=== PATIENT | female | born 1955 | race Caucasian/White ===

== ENCOUNTER 2020-08-16 14:13 | Emergency (ER) | payer MEDICARE, SELFPAY ==
[2020-08-16 14:23] VITALS: BP 154/62; PULSE 66; RESP 16; TEMP 36.4; O2SAT 99
--- NOTE | 2020-08-16 14:31 | ED.FEMALEGU ---
HPI - Female Genitourinary General Chief complaint: Urogenital-Female Stated complaint: frequent urination/vaginal itching Source: patient and RN notes reviewed Mode of arrival: ambulatory Limitations: no limitations History of Present Illness HPI Narrative: 65 year old female presents to express care with complaints of urgency,frequency, occasional incontinency of urination, and back pain for approximately one week duration. She states that she also has noted some whitish discharge on her underwear and some vaginal itching. Patient states that she was recently treated for an asthma exacerbation with steroids, and antibiotics on the 04 of August.Patient denies any suprapubic tenderness, no fevers chills or sweats, no nausea or vomiting. MD elicited complaint: vaginal discharge (itching) and other (urinary frequency) Onset (ago): week(s) (1) Location of symptoms: vaginal Urinary symptoms: Urgency and Frequency Exacerbating factors: none Relieving factors: none Associated symptoms: back pain and other (vaginal itching) Sexual activity: No Possible : postmenopausal Related Data Home Medications Medication Instructions Recorded Confirmed apixaban [Eliquis] 5 mg PO BID 08/16/20 08/16/20 calcium carbonate [Antacid 500 mg PO DAILY 08/16/20 08/16/20 (calcium carbonate)] cetirizine 10 mg PO DAILY 08/16/20 08/16/20 digoxin 125 mcg PO DAILY 08/16/20 08/16/20 fluticasone propionate 2 spray INTRANASAL DAILY 08/16/20 08/16/20 ipratropium-albuterol [Combivent 1 puff INHALATION QID 08/16/20 08/16/20 Respimat] levothyroxine 100 mcg PO DAILY 08/16/20 08/16/20 lorazepam 08/16/20 lorazepam 1 mg PO Q8H PRN 08/16/20 08/16/20 meloxicam 15 mg PO DAILY 08/16/20 08/16/20 metformin 500 mg PO BID 08/16/20 08/16/20 metoprolol tartrate 25 mg PO BID 08/16/20 08/16/20 oxycodone-acetaminophen 1 tablet PO Q6H PRN 08/16/20 08/16/20 pravastatin 10 mg PO DAILY 08/16/20 08/16/20 ropinirole 2 mg PO HS 08/16/20 08/16/20 ropinirole 3 mg PO BID 08/16/20 08/16/20 sertraline 100 mg PO DAILY 08/16/20 08/16/20 tizanidine 2 mg PO Q6H PRN 08/16/20 08/16/20 Allergies Allergy/AdvReac Type Severity Reaction Status Date / Time quinine Allergy Unknown Palpitation Verified 08/16/20 14:35 s Review of Systems Review of Systems: Narrative: CONSTITUTIONAL: Denies fever, chills, or sweats. EYES: Denies visual changes, redness, or discharge. ENT: Denies rhinorrhea, congestion, sore throat, or otalgia. CARDIOVASCULAR: Denies chest pain, palpitations, or edema. RESPIRATORY: Denies cough or dyspnea. GASTROINTESTINAL: Denies abdominal pain, nausea, vomiting, or diarrhea. GENITOURINARY: Denies dysuria or hematuria, urinary frequency, urgency, vaginal discharge with itching SKIN: Denies rash or itching. MUSCULOSKELETAL:positive low back pain, joint pain, or myalgia, positive history of arthritis NEUROLOGIC: Denies headache, numbness, or weakness. PSYCHIATRIC: positive for history of anxiety or depression. All systems reviewed & are unremarkable except as noted in HPI and below PMFSH Past Medical History Medical History (Updated 08/18/20 @ 11:52 by Sheila Cornejo NP) A-fib Anxiety and depression Asthma Diabetes Hyperlipidemia Hypertension Migraines Osteoarthritis Restless leg syndrome Surgical History Surgical History (Updated 08/17/20 @ 10:16 by Sheila Cornejo NP) H/O shoulder surgery History of total left knee replacement Social History Social History (Updated 08/17/20 @ 10:13 by Sheila Cornejo NP) Smoking status: Never smoker Alcohol intake: never Substance use type: opiates Last use: arthritis pain Living arrangements: with family Gender identity (if verbalized by the patient): Female Comments At time of signature, agree with nursing past medical, surgical, social history. There is no relevant family history pertinent to the presenting complaint Exam Narrative: Exam Narrative: GENERAL: Well-appearing, wel
== END 2020-08-16 15:07 | disposition home or self-care (01) ==
PROVIDERS: Emergency Provider Registered Nurse; PCP Family Medicine
DX: B37.3 Candidiasis of vulva and vagina (principal); R35.0 Frequency of micturition; Z96.652 Presence of left artificial knee joint; I48.91 Unspecified atrial fibrillation; F41.9 Anxiety disorder, unspecified; F32.9 Major depressive disorder, single episode, unspecified; J45.909 Unspecified asthma, uncomplicated; E11.9 Type 2 diabetes mellitus without complications; E78.5 Hyperlipidemia, unspecified; I10 Essential (primary) hypertension; M19.90 Unspecified osteoarthritis, unspecified site; G25.81 Restless legs syndrome
CPT/HCPCS: 81003; 99213; G0463

== ENCOUNTER 2020-09-04 10:10 | Emergency (ER) | payer MEDICARE, SELFPAY ==
--- NOTE | ~2020-09-04 | XR_ITS ---
EXAMINATION: XR chest 2V DATE: 09/04/2020 10:40 INDICATION: Cough, expiratory wheezes and decreased breath sounds TECHNIQUE: frontal and lateral views of the chest were obtained. COMPARISON: None FINDINGS: The lungs are clear with no focal airspace opacities, pulmonary edema, pleural effusion or pneumothor ax. Borderline heart size with left paracardial fat pad. Mild thoracic kyphosis with moderate spondyl osis. Chronic appearing mild anterior wedging of a few lower thoracic vertebral bodies. IMPRESSION: 1. Borderline heart size. No acute cardiopulmonary disease. Reviewed, dictated and finalized at location A.
[2020-09-04 10:15] VITALS: BP 171/63; PULSE 60; RESP 16; TEMP 37.3; O2SAT 100
--- NOTE | 2020-09-04 10:29 | ED.GENADULT ---
HPI - General Adult General Chief complaint: Upper Respiratory Infection Stated complaint: cough runny nose Time Seen by Provider: 09/04/20 10:29 Source: patient and RN notes reviewed Mode of arrival: ambulatory Limitations: no limitations History of Present Illness HPI narrative: 65-year-old female presents with complains of dry cough and chest congestion, wheezing, and rhinorrhea for the past 7 days. Routine Zyrtec, Albuterol inhaler, and nebulizer with some relief. Nasal congestion. No high fevers, drooling, neck or throat swelling. No chest pain or shortness of breath. Denies nausea, vomiting, and abdominal pain. Tolerating liquids well. Remains active. The patient reports she have not been diagnosed with COVID-19. The patient reports she is not waiting for the results of a COVID-19 lab test. The patient reports she do not have weakness or fatigue. The patient reports she do not have a worsening cough or shortness of breath. The patient reports she do not have any sore throat, loss of taste, and diarrhea. Denies recent traveling. Denies concerns for COVID-19 or exposures been home with limited outdoor exposure except for essential household needs and return home. At this time, patient is not suspected of having COVID-19. Some parts of this dictation were generated by voice recognition software and may contain typographical and/or grammatical inaccuracies. Related Data Home Medications Medication Instructions Recorded Confirmed apixaban [Eliquis] 5 mg PO BID 08/16/20 09/04/20 calcium carbonate [Antacid 500 mg PO DAILY 08/16/20 09/04/20 (calcium carbonate)] cetirizine 10 mg PO DAILY 08/16/20 09/04/20 digoxin 125 mcg PO DAILY 08/16/20 09/04/20 fluticasone propionate 2 spray INTRANASAL DAILY 08/16/20 09/04/20 ipratropium-albuterol [Combivent 1 puff INHALATION QID 08/16/20 09/04/20 Respimat] levothyroxine 100 mcg PO DAILY 08/16/20 09/04/20 lorazepam 1 mg PO Q8H PRN 08/16/20 09/04/20 meloxicam 15 mg PO DAILY 08/16/20 09/04/20 metformin 500 mg PO BID 08/16/20 09/04/20 metoprolol tartrate 25 mg PO BID 08/16/20 09/04/20 oxycodone-acetaminophen 1 tablet PO Q6H PRN 08/16/20 09/04/20 pravastatin 10 mg PO DAILY 08/16/20 09/04/20 ropinirole 2 mg PO HS 08/16/20 08/16/20 ropinirole 3 mg PO BID 08/16/20 09/04/20 sertraline 100 mg PO DAILY 08/16/20 08/16/20 tizanidine 2 mg PO Q6H PRN 08/16/20 08/16/20 Allergies Allergy/AdvReac Type Severity Reaction Status Date / Time quinine Allergy Unknown Palpitation Verified 08/16/20 14:35 s Review of Systems Review of Systems: Narrative: CONSTITUTIONAL: Denies fever, sweats, chills, fatigue. EYES: Denies visual changes, redness, discharge. ENT: Complains of rhinorrhea, congestion. Denies sore throat, otalgia. CARDIOVASCULAR: Denies chest pain, palpitations, edema. RESPIRATORY: Denies dyspnea, wheezing. Complains of dry cough, chest congestion. GASTROINTESTINAL: Denies abdominal pain, nausea, vomiting, diarrhea. GENITOURINARY: Denies dysuria, hematuria, abnormal discharge. SKIN: Denies rash or itching. MUSCULOSKELETAL: Denies acute back pain, joint pain, or myalgia. NEUROLOGIC: Denies numbness or focal weakness. PSYCHIATRIC: Denies anxiety or depression. [facility] Past Medical History Medical History (Updated 09/04/20 @ 10:48 by DOROTA Hansen) A-fib Anxiety and depression Asthma Diabetes Hyperlipidemia Hypertension Migraines Osteoarthritis Restless leg syndrome Surgical History Surgical History (Updated 09/04/20 @ 10:41 by DOROTA Hansen) H/O shoulder surgery bilateral History of hysterectomy 1984 History of total left knee replacement Family History Family History (Updated 09/04/20 @ 10:42 by DOROTA Hansen) Father Lung cancer Mother Hypertension Heart disease Asthma Social History Social History (Updated 09/04/20 @ 10:43 by DOROTA Hansen) Smoking status: Never smoker Tobacco type: cig
[2020-09-04 10:46] VITALS: BP 171/63; PULSE 60; RESP 16; TEMP 37.3; O2SAT 100
== END 2020-09-04 10:52 | disposition home or self-care (01) ==
PROVIDERS: Emergency Provider Nurse Practitioner Family; PCP Family Medicine
DX: J45.901 Unspecified asthma with (acute) exacerbation (principal); I48.91 Unspecified atrial fibrillation; F41.9 Anxiety disorder, unspecified; F32.9 Major depressive disorder, single episode, unspecified; E11.9 Type 2 diabetes mellitus without complications; E78.5 Hyperlipidemia, unspecified; I10 Essential (primary) hypertension; M19.90 Unspecified osteoarthritis, unspecified site; G25.81 Restless legs syndrome
CPT/HCPCS: 71046; 99213; G0463

== ENCOUNTER 2020-11-16 10:43 | Emergency (ER) | payer MEDICARE, SELFPAY ==
[2020-11-16 10:52] VITALS: BP 162/88; PULSE 62; RESP 16; TEMP 36.2; O2SAT 97
--- NOTE | 2020-11-16 11:04 | ED.URI ---
HPI - URI/Sore Throat General Chief Complaint: Upper Respiratory Infection Stated Complaint: coughing asthma issues Time Seen by Provider: 11/16/20 11:20 Source: patient and RN notes reviewed Mode of arrival: ambulatory Limitations: no limitations History of Present Illness HPI Narrative: 65-year-old female with history of asthma presents with concern for wheezing, cough, rhinorrhea, shortness of breath, reports symptoms started approximately 12 days ago. Reports she had a negative Covid test 2 weeks ago. Denies fever, body aches, chills, sweats, loss of sense of taste or smell, poor appetite, nausea, vomiting, diarrhea. Reports she is taking [id number]-[id number] sinus medicine that relieve sinus congestion. MD elicited complaint: cough Related Data Home Medications Medication Instructions Recorded Confirmed apixaban [Eliquis] 5 mg PO BID 08/16/20 11/16/20 calcium carbonate [Antacid 500 mg PO DAILY 08/16/20 11/16/20 (calcium carbonate)] cetirizine 10 mg PO DAILY 08/16/20 11/16/20 digoxin 125 mcg PO DAILY 08/16/20 11/16/20 fluticasone propionate 2 spray INTRANASAL DAILY 08/16/20 11/16/20 ipratropium-albuterol [Combivent 1 puff INHALATION QID 08/16/20 11/16/20 Respimat] levothyroxine 100 mcg PO DAILY 08/16/20 11/16/20 lorazepam 1 mg PO Q8H PRN 08/16/20 11/16/20 meloxicam 15 mg PO DAILY 08/16/20 11/16/20 metformin 500 mg PO BID 08/16/20 11/16/20 metoprolol tartrate 25 mg PO BID 08/16/20 11/16/20 oxycodone-acetaminophen 1 tablet PO Q6H PRN 08/16/20 11/16/20 pravastatin 10 mg PO DAILY 08/16/20 11/16/20 ropinirole 2 mg PO HS 08/16/20 11/16/20 ropinirole 3 mg PO BID 08/16/20 11/16/20 sertraline 100 mg PO DAILY 08/16/20 11/16/20 tizanidine 2 mg PO Q6H PRN 08/16/20 11/16/20 Allergies Allergy/AdvReac Type Severity Reaction Status Date / Time quinine Allergy Unknown Palpitation Verified 11/16/20 11:10 s Review of Systems Review of Systems: Narrative: CONSTITUTIONAL: Denies malaise, chills, sweats, or fever. EYES: Denies visual changes, redness, or discharge. ENT: Reports rhinorrhea, congestion. Denies sinus pain, otalgia and sore throat. CARDIOVASCULAR: Denies chest pain, palpitations, or edema. RESPIRATORY: Reports cough, occasional dyspnea. GASTROINTESTINAL: Denies abdominal pain, nausea, vomiting, diarrhea SKIN: Denies rash or itching. MUSCULOSKELETAL: Denies myalgia. NEUROLOGIC: Denies headache. All systems reviewed & are unremarkable except as noted in HPI and below PMFSH Past Medical History Medical History (Updated 11/16/20 @ 11:38 by Linnette Gaines NP) A-fib Anxiety and depression Asthma Diabetes Hyperlipidemia Hypertension Migraines Osteoarthritis Restless leg syndrome Surgical History Surgical History (Updated 09/04/20 @ 10:41 by DOROTA Hansen) H/O shoulder surgery bilateral History of hysterectomy 1984 History of total left knee replacement Family History Family History (Updated 09/04/20 @ 10:42 by DOROTA Hansen) Father Lung cancer Mother Hypertension Heart disease Asthma Social History Social History (Updated 09/04/20 @ 10:43 by DOROTA Hansen) Smoking status: Never smoker Tobacco type: cigarettes Second hand tobacco smoke exposure: No Alcohol intake: never Substance use type: opiates Last use: arthritis pain Gender identity (if verbalized by the patient): Female Comments At time of signature, agree with nursing past medical, surgical, social and family history. There is no relevant family history pertinent to the presenting complaint Exam Narrative: Exam Narrative: GENERAL: Well-appearing, well-nourished, and in no acute distress. HEAD: Normocephalic EYES: PERRLA, conjunctivae clear ENT: Nares clear, turbinates erythematous, clear discharge. Mucous membranes moist. TM pearly nichols with sharp light reflex bilaterally; no tragal tenderness. Oropharynx not erythematous without lesions. Tonsils not enlarged and without e
== END 2020-11-16 11:42 | disposition home or self-care (01) ==
PROVIDERS: Emergency Provider Nurse Practitioner; PCP Family Medicine
DX: J45.41 Moderate persistent asthma with (acute) exacerbation (principal); I48.91 Unspecified atrial fibrillation; F41.9 Anxiety disorder, unspecified; F32.9 Major depressive disorder, single episode, unspecified; E11.9 Type 2 diabetes mellitus without complications; E78.5 Hyperlipidemia, unspecified; I10 Essential (primary) hypertension; M19.90 Unspecified osteoarthritis, unspecified site; G25.81 Restless legs syndrome; Z96.652 Presence of left artificial knee joint
CPT/HCPCS: 99213; G0463

== ENCOUNTER 2021-02-05 13:31 | Emergency (ER) | payer MEDICARE, SELFPAY ==
[2021-02-05 13:59] VITALS: BP 149/61; PULSE 90; RESP 20; TEMP 37.1; O2SAT 98
--- NOTE | 2021-02-05 14:26 | ED.GENADULT ---
HPI - General Adult General Chief complaint: Urogenital-Female Stated complaint: Poss bladder infection Time Seen by Provider: 02/05/21 14:26 Source: patient and RN notes reviewed Mode of arrival: ambulatory Limitations: no limitations History of Present Illness HPI narrative: 65-year-old female presents with urinary complaints for the past 7 days. Allie reports increasing dysuria, which consists of dark urine, incontinent episodes, frequency, and urgency. Cranberry juice without relief.? Denies fever or chills. No significant pelvic pain. No vaginal discharge.? No concerns for STDs. Exacerbating factors urinating.? Denies hematuria or vaginal bleeding. LMP postmenopausal. No flank pain. Denies nausea, vomiting, and abdominal pain. Tolerating liquids well.? Remains active. The patient reports she was diagnosed with COVID-19 in July 2020, no current symptoms. The patient reports she received the [employer] COVID-19 vaccine 2 weeks ago. The patient reports she is not waiting for the results of a COVID-19 lab test. The patient reports she do not have chills, weakness, or fatigue. The patient reports she do not have a new or worsening cough or shortness of breath. Denies chest pain. The patient reports she do not have any rhinorrhea, congestion, sore throat, loss of taste or smell, and diarrhea. Denies recent traveling. Denies concerns for COVID-19 or exposures been home with limited outdoor exposure except for essential household needs and return home. At this time, patient is not suspected of having COVID-19. Some parts of this dictation were generated by voice recognition software and may contain typographical and/or grammatical inaccuracies. Related Data Home Medications Medication Instructions Recorded Confirmed apixaban [Eliquis] 5 mg PO BID 08/16/20 02/05/21 calcium carbonate [Antacid 500 mg PO DAILY 08/16/20 02/05/21 (calcium carbonate)] cetirizine 10 mg PO DAILY 08/16/20 02/05/21 digoxin 125 mcg PO DAILY 08/16/20 02/05/21 fluticasone propionate 2 spray INTRANASAL DAILY 08/16/20 02/05/21 ipratropium-albuterol [Combivent 1 puff INHALATION QID 08/16/20 02/05/21 Respimat] levothyroxine 100 mcg PO DAILY 08/16/20 02/05/21 lorazepam 1 mg PO Q8H PRN 08/16/20 02/05/21 meloxicam 15 mg PO DAILY 08/16/20 02/05/21 metformin 500 mg PO BID 08/16/20 02/05/21 metoprolol tartrate 25 mg PO BID 08/16/20 02/05/21 oxycodone-acetaminophen 1 tablet PO Q6H PRN 08/16/20 02/05/21 pravastatin 10 mg PO DAILY 08/16/20 02/05/21 ropinirole 2 mg PO HS 08/16/20 02/05/21 ropinirole 3 mg PO BID 08/16/20 02/05/21 sertraline 100 mg PO DAILY 08/16/20 02/05/21 tizanidine 2 mg PO Q6H PRN 08/16/20 02/05/21 budesonide-formoterol [Symbicort] 2 puff INHALATION BID 02/05/21 02/05/21 Allergies Allergy/AdvReac Type Severity Reaction Status Date / Time quinine Allergy Unknown Palpitation Verified 02/05/21 14:10 s Review of Systems Review of Systems: Narrative: CONSTITUTIONAL: Denies fever, chills, sweats. EYES: Denies visual changes, redness, discharge. ENT: Denies rhinorrhea, congestion, sore throat, otalgia. CARDIOVASCULAR: Denies chest pain, palpitations, edema. RESPIRATORY: Denies dyspnea, wheezing, cough. GASTROINTESTINAL: Denies abdominal pain, nausea, vomiting, diarrhea. GENITOURINARY: Complains of dysuria (dark urine, incontinent episodes, frequency, and urgency). Denies burning, hematuria, abnormal discharge. SKIN: Denies rash or itching. MUSCULOSKELETAL: Denies acute back pain, joint pain, or myalgia. NEUROLOGIC: Denies numbness or focal weakness. PSYCHIATRIC: Denies anxiety or depression. All systems reviewed & are unremarkable except as noted in HPI and below. [facility] Past Medical History Medical History A-fib Anxiety and depression Asthma Diabetes Hyperlipidemia Hypertension Migraines Osteoarthritis Restless leg syndrome Surgical History Surgical
== END 2021-02-05 14:30 | disposition home or self-care (01) ==
PROVIDERS: Emergency Provider Nurse Practitioner Family; PCP Family Medicine
DX: R30.0 Dysuria (principal); I48.91 Unspecified atrial fibrillation; F41.9 Anxiety disorder, unspecified; F32.9 Major depressive disorder, single episode, unspecified; J45.909 Unspecified asthma, uncomplicated; E11.9 Type 2 diabetes mellitus without complications; E78.5 Hyperlipidemia, unspecified; I10 Essential (primary) hypertension; M19.90 Unspecified osteoarthritis, unspecified site; G25.81 Restless legs syndrome
CPT/HCPCS: 81003; 87086; 87088; 99213; G0463

== ENCOUNTER 2022-05-18 10:57 | Emergency (ER) | payer MEDICARE, SELFPAY ==
[2022-05-18 11:04] VITALS: BP 154/64; PULSE 80; RESP 20; TEMP 36.8; O2SAT 99
--- NOTE | 2022-05-18 11:26 | ED.URI ---
HPI - URI/Sore Throat General Chief Complaint: Upper Respiratory Infection Stated Complaint: Chest Congestion/Cough Time Seen by Provider: 05/18/22 11:10 Source: patient and RN notes reviewed History of Present Illness HPI Narrative: Patient is a 67-year-old female who presents the urgent care with complaints of cough, nasal drainage, sinus pressure. Patient states is been going on since Sunday. Denies of any fevers, shortness of breath or chest pain. Patient states she does have a history of asthma and has been using her inhalers as directed. Patient denies of any ill contacts. Patient has taken Tylenol. No other acute complaints. No acute distress noted. Patient aware of the plan of care. Some parts of this dictation were generated by voice recognition software and may contain typographical and/or grammatical inaccuracies. Related Data Home Medications Medication Instructions Recorded Confirmed apixaban 5 mg tablet (Eliquis) 5 mg PO BID 08/16/20 02/05/21 calcium carbonate 200 mg calcium 500 mg PO DAILY 08/16/20 02/05/21 (500 mg) chewable tablet (Antacid (calcium carbonate)) cetirizine 10 mg tablet 10 mg PO DAILY 08/16/20 02/05/21 digoxin 125 mcg (0.125 mg) tablet 125 mcg PO DAILY 08/16/20 02/05/21 fluticasone propionate 50 2 spray intranasal DAILY 08/16/20 02/05/21 mcg/actuation nasal spray,suspension ipratropium 20 mcg-albuterol 100 1 puff inhalation QID 08/16/20 02/05/21 mcg/actuation mist for inhalation (Combivent Respimat) levothyroxine 100 mcg tablet 100 mcg PO DAILY 08/16/20 02/05/21 lorazepam 1 mg tablet 1 mg PO Q8H PRN Anxiety 08/16/20 02/05/21 meloxicam 15 mg tablet 15 mg PO DAILY 08/16/20 02/05/21 metformin 500 mg tablet,extended 500 mg PO BID 08/16/20 02/05/21 release 24 hr metoprolol tartrate 25 mg tablet 25 mg PO BID 08/16/20 02/05/21 oxycodone-acetaminophen 5 mg-325 1 tablet PO Q6H PRN Pain 08/16/20 02/05/21 mg tablet pravastatin 10 mg tablet 10 mg PO DAILY 08/16/20 02/05/21 ropinirole 2 mg tablet 2 mg PO HS 08/16/20 02/05/21 ropinirole 3 mg tablet 3 mg PO BID 08/16/20 02/05/21 sertraline 100 mg tablet 100 mg PO DAILY 08/16/20 02/05/21 tizanidine 4 mg tablet 2 mg PO Q6H PRN Muscle Spasm 08/16/20 02/05/21 budesonide-formoterol HFA 160 2 puff inhalation BID 02/05/21 02/05/21 mcg-4.5 mcg/actuation aerosol inhaler (Symbicort) Allergies Allergy/AdvReac Type Severity Reaction Status Date / Time quinine Allergy Unknown Palpitation Verified 02/05/21 14:10 s Review of Systems Review of Systems: CONSTITUTIONAL: Denies fever, chills, or sweats. EYES: Denies visual changes, redness, or discharge. ENT: Reports of rhinorrhea, nasal congestion, sinus pressure postnasal drainage CARDIOVASCULAR: Denies chest pain, palpitations, or edema. RESPIRATORY: Reports of cough without dyspnea GASTROINTESTINAL: Denies abdominal pain, nausea, vomiting, or diarrhea. GENITOURINARY: Denies dysuria or hematuria. SKIN: Denies rash or itching. MUSCULOSKELETAL: Denies back pain, joint pain, or myalgia. NEUROLOGIC: Denies headache, numbness, or weakness. All other systems reviewed are negative, except as documented in HPI. [facility] Past Medical History Medical History A-fib Anxiety and depression Asthma Diabetes Hyperlipidemia Hypertension Migraines Osteoarthritis Restless leg syndrome Surgical History Surgical History H/O shoulder surgery bilateral History of hysterectomy 1984 History of total left knee replacement Family History Family History Father Lung cancer Mother Hypertension Heart disease Asthma Social History Social History Smoking status: Never smoker Tobacco type: cigarettes Second hand tobacco smoke exposure: No Alcohol int
== END 2022-05-18 11:59 | disposition home or self-care (01) ==
PROVIDERS: Emergency Provider Nurse Practitioner Family; PCP Family Medicine
DX: J32.9 Chronic sinusitis, unspecified (principal); I48.91 Unspecified atrial fibrillation; E11.9 Type 2 diabetes mellitus without complications; E78.5 Hyperlipidemia, unspecified; I10 Essential (primary) hypertension; M19.90 Unspecified osteoarthritis, unspecified site; G25.81 Restless legs syndrome; J45.909 Unspecified asthma, uncomplicated; Z96.652 Presence of left artificial knee joint; F41.9 Anxiety disorder, unspecified; F32.A Depression, unspecified
CPT/HCPCS: 99213; G0463

== ENCOUNTER 2022-10-02 15:28 | Emergency (ER) | payer MEDICARE, SELFPAY ==
--- NOTE | ~2022-10-02 | XR_ITS ---
EXAMINATION: XR hand LT min 3V DATE: 10/02/2022 16:17 INDICATION: Last left hand pain post fall TECHNIQUE: Posteroanterior, oblique and lateral views of the left hand were obtained. COMPARISON: None. FINDINGS: Spiral fracture of the proximal to mid diaphyses of the left third and fourth metacarpals. The fourth metacarpal fracture remains nondisplaced in essentially anatomic alignment. The third metacarpal fra cture appears likely mildly comminuted with 3 mm radial displacement of a small butterfly fragment. T here is a double density sign along the distal margin of the fracture suggesting a couple millimeter of proximal impaction with slight shortening of the metacarpal. No other fractures identified. Polyar ticular osteoarthritis, advanced at the fourth proximal interphalangeal joint, severe at the fifth pr oximal and distal interphalangeal joints and moderate severity at the remaining interphalangeal joint s and triscaphe joint. Mild osteoarthritis at many of the remaining joints in the left hand. Soft tis dayo swelling over the dorsum of the hand and extending to the proximal aspect of the third and fourth digits. IMPRESSION: 1. Third and fourth metacarpal diaphyseal fractures as detailed above. 2. Moderate to severe polyarticular osteoarthritis. Reviewed, dictated and finalized at location A. [employer]
[2022-10-02 15:54] VITALS: BP 171/51; PULSE 61; RESP 16; TEMP 36.2; O2SAT 99
--- NOTE | 2022-10-02 17:11 | ED.UPPEXIN ---
HPI - Extremity Injury (Upper) General Chief Complaint: Extremity Injury, Upper Stated Complaint: left hand injury Time Seen by Provider: 10/02/22 17:12 Source: patient and RN notes reviewed Mode of arrival: ambulatory Limitations: no limitations History of Present Illness HPI narrative: 67-year-old female presents with concern for left hand swelling and bruising. Reports she slipped and fell last night and caught herself with her hand. She reports pain only with certain range of motion. Reports she took Tylenol MD complaint: injury to: left and hand Related Data Home Medications Medication Instructions Recorded Confirmed apixaban 5 mg tablet (Eliquis) 5 mg PO BID 08/16/20 02/05/21 calcium carbonate 200 mg calcium 500 mg PO DAILY 08/16/20 02/05/21 (500 mg) chewable tablet (Antacid (calcium carbonate)) cetirizine 10 mg tablet 10 mg PO DAILY 08/16/20 02/05/21 digoxin 125 mcg (0.125 mg) tablet 125 mcg PO DAILY 08/16/20 02/05/21 fluticasone propionate 50 2 spray intranasal DAILY 08/16/20 02/05/21 mcg/actuation nasal spray,suspension ipratropium 20 mcg-albuterol 100 1 puff inhalation QID 08/16/20 02/05/21 mcg/actuation mist for inhalation (Combivent Respimat) levothyroxine 100 mcg tablet 100 mcg PO DAILY 08/16/20 02/05/21 lorazepam 1 mg tablet 1 mg PO Q8H PRN Anxiety 08/16/20 02/05/21 meloxicam 15 mg tablet 15 mg PO DAILY 08/16/20 02/05/21 metformin 500 mg tablet,extended 500 mg PO BID 08/16/20 02/05/21 release 24 hr metoprolol tartrate 25 mg tablet 25 mg PO BID 08/16/20 02/05/21 oxycodone-acetaminophen 5 mg-325 1 tablet PO Q6H PRN Pain 08/16/20 02/05/21 mg tablet pravastatin 10 mg tablet 10 mg PO DAILY 08/16/20 02/05/21 ropinirole 2 mg tablet 2 mg PO HS 08/16/20 02/05/21 ropinirole 3 mg tablet 3 mg PO BID 08/16/20 02/05/21 sertraline 100 mg tablet 100 mg PO DAILY 08/16/20 02/05/21 tizanidine 4 mg tablet 2 mg PO Q6H PRN Muscle Spasm 08/16/20 02/05/21 budesonide-formoterol HFA 160 2 puff inhalation BID 02/05/21 02/05/21 mcg-4.5 mcg/actuation aerosol inhaler (Symbicort) furosemide 20 mg tablet mg 10/02/22 losartan 25 mg tablet mg 10/02/22 Allergies Allergy/AdvReac Type Severity Reaction Status Date / Time quinine Allergy Unknown Palpitation Verified 02/05/21 14:10 s Review of Systems Review of Systems: CONSTITUTIONAL: Denies malaise, chills, sweats, or fever. SKIN: Denies rash or itching, open skin, laceration, abrasion, redness, warmth MUSCULOSKELETAL: Reports left hand pain, bruising, swelling NEUROLOGIC: Denies numbness, weakness All systems reviewed & are unremarkable except as noted in HPI and below PMFSH Past Medical History Medical History A-fib Anxiety and depression Asthma Diabetes Hyperlipidemia Hypertension Migraines Osteoarthritis Restless leg syndrome Surgical History Surgical History H/O shoulder surgery bilateral History of hysterectomy 1984 History of total left knee replacement Family History Family History Father Lung cancer Mother Hypertension Heart disease Asthma Social History Social History Smoking status: Never smoker Tobacco type: cigarettes Second hand tobacco smoke exposure: No Alcohol intake: never Substance use type: opiates Last use: arthritis pain Gender identity (if verbalized by the patient): Female Comments At time of signature, agree with nursing past medical, surgical, social and family history. There is no relevant family history pertinent to the presenting complaint Exam Narrative: GENERAL: Well-appearing, well-nourished, and in no acute distress. HEAD: Normocephalic EYES: PERRLA, conjunctivae clear NECK: Supple. CHEST: Speaks in full sentences. No respiratory distr
== END 2022-10-02 17:56 | disposition home or self-care (01) ==
PROVIDERS: Emergency Provider Nurse Practitioner; PCP Family Medicine
DX: S62.323A Displaced fracture of shaft of third metacarpal bone, left hand, initial encounter for closed fracture (principal); S62.355A Nondisplaced fracture of shaft of fourth metacarpal bone, left hand, initial encounter for closed fracture; W01.0XXA Fall on same level from slipping, tripping and stumbling without subsequent striking against object, initial encounter; I48.91 Unspecified atrial fibrillation; F41.9 Anxiety disorder, unspecified; F32.A Depression, unspecified; E11.9 Type 2 diabetes mellitus without complications; E78.5 Hyperlipidemia, unspecified; I10 Essential (primary) hypertension; M19.90 Unspecified osteoarthritis, unspecified site; G25.81 Restless legs syndrome; Z96.652 Presence of left artificial knee joint
CPT/HCPCS: 29125; 73130; 99214; A4565; G0463

== ENCOUNTER 2023-02-07 16:28 | Emergency (ER) | payer MEDICARE, MEDICAID, SELFPAY ==
[2023-02-07 16:37] VITALS: BP 171/51; PULSE 58; RESP 16; TEMP 37; O2SAT 98
--- NOTE | 2023-02-07 18:15 | ED.EAR ---
HPI - Ear Problem General Chief complaint: Ear Stated complaint: Right Ear Problem Time Seen by Provider: 02/07/23 18:10 Source: patient, RN notes reviewed and old records reviewed Mode of arrival: ambulatory Limitations: no limitations History of Present Illness HPI Narrative: 67 year old female with complaints of right ear pain for 3 days, Patient reports that she put drops in her ear to remove wax(Debrox)and irrigated ear canals with no improvement.Patient reports that she has decreased hearing to her right ear.Patient denies any fevers, chills or sweats, denies any cough or sinus drainage or any other cold symptoms MD Complaint: ear pain and decreased hearing Location: right ear Duration: constant Severity: severe Treatment prior to arrival: attempt at ear wax removal (Debrox and irrigated) Related Data Home Medications Medication Instructions Recorded Confirmed apixaban 5 mg tablet (Eliquis) 5 mg PO BID 08/16/20 02/07/23 calcium carbonate 200 mg calcium 500 mg PO DAILY 08/16/20 02/07/23 (500 mg) chewable tablet (Antacid (calcium carbonate)) cetirizine 10 mg tablet 10 mg PO DAILY 08/16/20 02/07/23 digoxin 125 mcg (0.125 mg) tablet 125 mcg PO DAILY 08/16/20 02/07/23 fluticasone propionate 50 2 spray intranasal DAILY 08/16/20 02/07/23 mcg/actuation nasal spray,suspension ipratropium 20 mcg-albuterol 100 1 puff inhalation QID 08/16/20 02/07/23 mcg/actuation mist for inhalation (Combivent Respimat) levothyroxine 100 mcg tablet 100 mcg PO DAILY 08/16/20 02/07/23 lorazepam 1 mg tablet 1 mg PO Q8H PRN Anxiety 08/16/20 02/07/23 meloxicam 15 mg tablet 15 mg PO DAILY 08/16/20 02/07/23 metformin 500 mg tablet,extended 500 mg PO BID 08/16/20 02/07/23 release 24 hr metoprolol tartrate 25 mg tablet 25 mg PO BID 08/16/20 02/07/23 oxycodone-acetaminophen 5 mg-325 1 tablet PO Q6H PRN Pain 08/16/20 02/07/23 mg tablet pravastatin 10 mg tablet 10 mg PO DAILY 08/16/20 02/07/23 ropinirole 3 mg tablet 3 mg PO BID 08/16/20 02/07/23 sertraline 100 mg tablet 100 mg PO DAILY 08/16/20 02/07/23 tizanidine 4 mg tablet 2 mg PO Q6H PRN Muscle Spasm 08/16/20 02/07/23 budesonide-formoterol HFA 160 2 puff inhalation BID 02/05/21 02/07/23 mcg-4.5 mcg/actuation aerosol inhaler (Symbicort) furosemide 20 mg tablet 20 mg PO DAILY 10/02/22 02/07/23 losartan 25 mg tablet 25 mg PO DAILY 10/02/22 02/07/23 Allergies Allergy/AdvReac Type Severity Reaction Status Date / Time quinine Allergy Unknown Palpitation Verified 02/07/23 17:44 s Review of Systems Review of Systems: CONSTITUTIONAL: Denies malaise, chills, sweats, or fever. EYES: Denies visual changes, redness, or discharge. ENT: Reports no rhinorrhea, congestion, sinus pain, states right otalgia and denies any sore throat. CARDIOVASCULAR: Denies chest pain, palpitations, or edema. RESPIRATORY: Reports no cough.? Denies dyspnea. GASTROINTESTINAL: Denies abdominal pain, nausea, vomiting, diarrhea SKIN: Denies rash or itching. MUSCULOSKELETAL: Denies myalgia. NEUROLOGIC: Denies headache. All systems reviewed & are unremarkable except as noted in HPI and below PMFSH Past Medical History Medical History A-fib Anxiety and depression Asthma Diabetes Hyperlipidemia Hypertension Migraines Osteoarthritis Restless leg syndrome Surgical History Surgical History H/O shoulder surgery bilateral History of hysterectomy 1984 History of total left knee replacement Family History Family History Father Lung cancer Mother Hypertension Heart disease Asthma Social History Social History Smoking status: Never smoker Tobacco type: cigarettes Second hand tobacco smoke exposure: No Alcohol intake: never Substance use ty
== END 2023-02-07 18:30 | disposition home or self-care (01) ==
PROVIDERS: Emergency Provider Registered Nurse; PCP Family Medicine
DX: H60.91 Unspecified otitis externa, right ear (principal); I48.91 Unspecified atrial fibrillation; J45.909 Unspecified asthma, uncomplicated; E11.9 Type 2 diabetes mellitus without complications; E78.5 Hyperlipidemia, unspecified; I10 Essential (primary) hypertension; M19.90 Unspecified osteoarthritis, unspecified site; G25.81 Restless legs syndrome; Z96.652 Presence of left artificial knee joint
CPT/HCPCS: 99213; G0463

== ENCOUNTER 2023-04-28 18:52 | Emergency (ER) | payer MEDICARE, MEDICAID, SELFPAY ==
--- NOTE | 2023-04-28 18:57 | ED.SKABFB ---
HPI - Skin/Abscess/Foreign Bdy General Chief complaint: Skin/Abscess/Foreign Body Stated complaint: rash on leg Time Seen by Provider: 04/28/23 18:58 Source: patient and RN notes reviewed History of Present Illness HPI narrative: Patient is a 67-year-old female presents to urgent care with complaints of a rash to the left lower leg. Patient states she scratchy night and noticed itchy rash. Patient denies any pain to the area. States that she has not had history of shingles and has had the shingles vaccination. Patient states she did use some itch relief cream that she had at home. No other acute complaints. No acute distress noted. Patient aware of the plan of care. Some parts of this dictation were generated by voice recognition software and may contain typographical and/or grammatical inaccuracies. Related Data Home Medications Medication Instructions Recorded Confirmed apixaban 5 mg tablet (Eliquis) 5 mg PO BID 08/16/20 02/07/23 calcium carbonate 200 mg calcium 500 mg PO DAILY 08/16/20 02/07/23 (500 mg) chewable tablet (Antacid (calcium carbonate)) cetirizine 10 mg tablet 10 mg PO DAILY 08/16/20 02/07/23 digoxin 125 mcg (0.125 mg) tablet 125 mcg PO DAILY 08/16/20 02/07/23 fluticasone propionate 50 2 spray intranasal DAILY 08/16/20 02/07/23 mcg/actuation nasal spray,suspension ipratropium 20 mcg-albuterol 100 1 puff inhalation QID 08/16/20 02/07/23 mcg/actuation mist for inhalation (Combivent Respimat) levothyroxine 100 mcg tablet 100 mcg PO DAILY 08/16/20 02/07/23 lorazepam 1 mg tablet 1 mg PO Q8H PRN Anxiety 08/16/20 02/07/23 meloxicam 15 mg tablet 15 mg PO DAILY 08/16/20 02/07/23 metformin 500 mg tablet,extended 500 mg PO BID 08/16/20 02/07/23 release 24 hr metoprolol tartrate 25 mg tablet 25 mg PO BID 08/16/20 02/07/23 oxycodone-acetaminophen 5 mg-325 1 tablet PO Q6H PRN Pain 08/16/20 02/07/23 mg tablet pravastatin 10 mg tablet 10 mg PO DAILY 08/16/20 02/07/23 ropinirole 3 mg tablet 3 mg PO BID 08/16/20 02/07/23 sertraline 100 mg tablet 100 mg PO DAILY 08/16/20 02/07/23 tizanidine 4 mg tablet 2 mg PO Q6H PRN Muscle Spasm 08/16/20 02/07/23 budesonide-formoterol HFA 160 2 puff inhalation BID 02/05/21 02/07/23 mcg-4.5 mcg/actuation aerosol inhaler (Symbicort) furosemide 20 mg tablet 20 mg PO DAILY 10/02/22 02/07/23 losartan 25 mg tablet 25 mg PO DAILY 10/02/22 02/07/23 Allergies Allergy/AdvReac Type Severity Reaction Status Date / Time quinine Allergy Unknown Palpitation Verified 02/07/23 17:44 s Review of Systems Review of Systems: CONSTITUTIONAL: Denies fever, chills, or sweats. EYES: Denies visual changes, redness, or discharge. ENT: Denies rhinorrhea, congestion, sore throat, or otalgia. CARDIOVASCULAR: Denies chest pain, palpitations, or edema. RESPIRATORY: Denies cough or dyspnea. GASTROINTESTINAL: Denies abdominal pain, nausea, vomiting, or diarrhea. GENITOURINARY: Denies dysuria or hematuria. SKIN: Reports of an itchy rash to the left lower leg MUSCULOSKELETAL: Denies back pain, joint pain, or myalgia. NEUROLOGIC: Denies headache, numbness, or weakness. All other systems reviewed are negative, except as documented in HPI. [facility] Past Medical History Medical History A-fib Anxiety and depression Asthma Diabetes Hyperlipidemia Hypertension Migraines Osteoarthritis Restless leg syndrome Surgical History Surgical History H/O shoulder surgery bilateral History of hysterectomy 1984 History of total left knee replacement Family History Family History Father Lung cancer Mother Hypertension Heart disease Asthma Social History Social History Smoking status: Never smoker Tobacco type: cigarettes Second hand tobacco smok
[2023-04-28 19:00] VITALS: BP 204/62; PULSE 68; RESP 20; TEMP 37.1; O2SAT 99
== END 2023-04-28 19:32 | disposition home or self-care (01) ==
PROVIDERS: Emergency Provider Nurse Practitioner Family; PCP Family Medicine
DX: L50.9 Urticaria, unspecified (principal); I48.91 Unspecified atrial fibrillation; Z79.01 Long term (current) use of anticoagulants; E11.9 Type 2 diabetes mellitus without complications; E78.5 Hyperlipidemia, unspecified; I10 Essential (primary) hypertension
CPT/HCPCS: 99213; G0463

== ENCOUNTER 2023-09-21 16:16 | Emergency (ER) | payer MEDICARE, MEDICAID, SELFPAY ==
[2023-09-21 16:22] VITALS: BP 204/59; PULSE 55; RESP 16; TEMP 36.3; O2SAT 99
--- NOTE | 2023-09-21 16:26 | ED.GENADULT ---
HPI - General Adult General Chief complaint: Upper Respiratory Infection Stated complaint: Asthma Problems, Cough, Runny Nose Source: patient and RN notes reviewed History of Present Illness HPI narrative: 68 yo F presents to urgent care with complaints of her asthma acting up. Pt states she has been wheezing and coughing x 3 days. Pt also reports a runny nose x 3 days. Pt reports hx of asthma and states she had an exacerbation like this a month ago and was seen at her PCP's office where she was given a steroid. Pt denies any fevers, chills, chest pain, N/V/D, sore throat, ear pain, or congestion. Pt has been using her inhaler at home with minimal relief. Related Data Home Medications Medication Instructions Recorded Confirmed apixaban 5 mg tablet (Eliquis) 5 mg PO BID 08/16/20 02/07/23 calcium carbonate 200 mg calcium 500 mg PO DAILY 08/16/20 02/07/23 (500 mg) chewable tablet (Antacid (calcium carbonate)) cetirizine 10 mg tablet 10 mg PO DAILY 08/16/20 02/07/23 digoxin 125 mcg (0.125 mg) tablet 125 mcg PO DAILY 08/16/20 02/07/23 fluticasone propionate 50 2 spray intranasal DAILY 08/16/20 02/07/23 mcg/actuation nasal spray,suspension ipratropium 20 mcg-albuterol 100 1 puff inhalation QID 08/16/20 02/07/23 mcg/actuation mist for inhalation (Combivent Respimat) levothyroxine 100 mcg tablet 100 mcg PO DAILY 08/16/20 02/07/23 lorazepam 1 mg tablet 1 mg PO Q8H PRN Anxiety 08/16/20 02/07/23 meloxicam 15 mg tablet 15 mg PO DAILY 08/16/20 02/07/23 metformin 500 mg tablet,extended 500 mg PO BID 08/16/20 02/07/23 release 24 hr metoprolol tartrate 25 mg tablet 25 mg PO BID 08/16/20 02/07/23 oxycodone-acetaminophen 5 mg-325 1 tablet PO Q6H PRN Pain 08/16/20 02/07/23 mg tablet pravastatin 10 mg tablet 10 mg PO DAILY 08/16/20 02/07/23 ropinirole 3 mg tablet 3 mg PO BID 08/16/20 02/07/23 sertraline 100 mg tablet 100 mg PO DAILY 08/16/20 02/07/23 tizanidine 4 mg tablet 2 mg PO Q6H PRN Muscle Spasm 08/16/20 02/07/23 budesonide-formoterol HFA 160 2 puff inhalation BID 02/05/21 02/07/23 mcg-4.5 mcg/actuation aerosol inhaler (Symbicort) furosemide 20 mg tablet 20 mg PO DAILY 10/02/22 02/07/23 losartan 25 mg tablet 25 mg PO DAILY 10/02/22 02/07/23 flecainide 50 mg tablet mg 09/21/23 Allergies Allergy/AdvReac Type Severity Reaction Status Date / Time quinine Allergy Unknown Palpitation Verified 02/07/23 17:44 s Review of Systems Review of Systems: Pertinent positives and pertinent negatives per HPI. [facility] Past Medical History Medical History A-fib Anxiety and depression Asthma Diabetes Hyperlipidemia Hypertension Migraines Osteoarthritis Restless leg syndrome Surgical History Surgical History H/O shoulder surgery bilateral History of hysterectomy 1984 History of total left knee replacement Family History Family History Father Lung cancer Mother Hypertension Heart disease Asthma Social History Social History Smoking status: Never smoker Tobacco type: cigarettes Second hand tobacco smoke exposure: No Alcohol intake: never Substance use type: opiates Last use: arthritis pain Living arrangements: with family Occupation/Education: retired Gender identity (if verbalized by the patient): Female Comments At the time of my signature, I reviewed and agree with the nursing past medical, surgical, social, and family history. There is no relevant family history pertinent to the patient complaint. Exam Narrative: GENERAL: This is a well-nourished, well-developed patient, in no apparent distress. HEAD: normocephalic, atraumatic. EYES: Sclera clear/white. Vision is grossly intact. EARS: External ears normal, auditory canals clear and
== END 2023-09-21 16:46 | disposition home or self-care (01) ==
PROVIDERS: Emergency Provider Nurse Practitioner Family; PCP Family Medicine
DX: J45.901 Unspecified asthma with (acute) exacerbation (principal); I48.91 Unspecified atrial fibrillation; E11.9 Type 2 diabetes mellitus without complications; E78.5 Hyperlipidemia, unspecified; I10 Essential (primary) hypertension; M19.90 Unspecified osteoarthritis, unspecified site; G25.81 Restless legs syndrome; Z96.652 Presence of left artificial knee joint; F41.9 Anxiety disorder, unspecified; F32.A Depression, unspecified
CPT/HCPCS: 99213; G0463

== ENCOUNTER 2023-10-10 11:04 | Emergency (ER) | payer MEDICARE, MEDICAID, SELFPAY ==
[2023-10-10 11:11] VITALS: BP 181/61; PULSE 59; RESP 16; TEMP 36.7; O2SAT 97
--- NOTE | 2023-10-10 11:12 | ED.ASTHMA ---
HPI - Asthma General Chief Complaint: Upper Respiratory Infection Stated Complaint: Shortness of Breath/Asthma Time Seen by Provider: 10/10/23 11:14 Source: patient Mode of arrival: ambulatory Limitations: no limitations History of Present Illness HPI Narrative: Sheila is a 68-year-old female patient presenting to the clinic today with complaints of shortness of breath and with clear sputum. She reports history of asthma. She denies any chest pain. Denies any fever or chills. Related Data Home Medications Medication Instructions Recorded Confirmed apixaban 5 mg tablet (Eliquis) 5 mg PO BID 08/16/20 10/10/23 calcium carbonate 200 mg calcium 500 mg PO DAILY 08/16/20 10/10/23 (500 mg) chewable tablet (Antacid (calcium carbonate)) cetirizine 10 mg tablet 10 mg PO DAILY 08/16/20 10/10/23 digoxin 125 mcg (0.125 mg) tablet 125 mcg PO DAILY 08/16/20 10/10/23 fluticasone propionate 50 2 spray intranasal DAILY 08/16/20 10/10/23 mcg/actuation nasal spray,suspension ipratropium 20 mcg-albuterol 100 1 puff inhalation QID 08/16/20 10/10/23 mcg/actuation mist for inhalation (Combivent Respimat) levothyroxine 100 mcg tablet 100 mcg PO DAILY 08/16/20 10/10/23 lorazepam 1 mg tablet 1 mg PO Q8H PRN Anxiety 08/16/20 10/10/23 meloxicam 15 mg tablet 15 mg PO DAILY 08/16/20 10/10/23 metformin 500 mg tablet,extended 500 mg PO BID 08/16/20 10/10/23 release 24 hr metoprolol tartrate 25 mg tablet 25 mg PO BID 08/16/20 10/10/23 oxycodone-acetaminophen 5 mg-325 1 tablet PO Q6H PRN Pain 08/16/20 10/10/23 mg tablet pravastatin 10 mg tablet 10 mg PO DAILY 08/16/20 10/10/23 ropinirole 3 mg tablet 3 mg PO BID 08/16/20 10/10/23 sertraline 100 mg tablet 100 mg PO DAILY 08/16/20 10/10/23 tizanidine 4 mg tablet 2 mg PO Q6H PRN Muscle Spasm 08/16/20 10/10/23 budesonide-formoterol HFA 160 2 puff inhalation BID 02/05/21 10/10/23 mcg-4.5 mcg/actuation aerosol inhaler (Symbicort) furosemide 20 mg tablet 20 mg PO DAILY 10/02/22 10/10/23 losartan 25 mg tablet 25 mg PO DAILY 10/02/22 10/10/23 flecainide 50 mg tablet 50 mg PO DAILY 09/21/23 10/10/23 montelukast 10 mg tablet 10 mg PO HS 10/10/23 10/10/23 pravastatin 40 mg tablet 40 mg PO DAILY 10/10/23 10/10/23 trazodone 50 mg tablet 50 mg PO DAILY 10/10/23 10/10/23 Allergies Allergy/AdvReac Type Severity Reaction Status Date / Time quinine Allergy Unknown Palpitation Verified 10/10/23 11:42 s Review of Systems Review of Systems: Pertinent positives per HPI. Patient denies any fever, chills, rash, headache, visual changes, dizziness, chest pain, palpitations, nausea, vomiting, diarrhea, constipation, abdominal pain, or any urinary issues. [facility] Past Medical History Medical History A-fib Anxiety and depression Asthma Diabetes Hyperlipidemia Hypertension Migraines Osteoarthritis Restless leg syndrome Surgical History Surgical History H/O shoulder surgery bilateral History of hysterectomy 1984 History of total left knee replacement Family History Family History Father Lung cancer Mother Hypertension Heart disease Asthma Social History Social History Smoking status: Never smoker Tobacco type: cigarettes Second hand tobacco smoke exposure: No Alcohol intake: never Substance use type: opiates Last use: arthritis pain Living arrangements: with family Occupation/Education: retired Gender identity (if verbalized by the patient): Female Comments At the time of my signature, I reviewed and agree with the nursing past medical, surgical, social, and family history. There is no relevant family history pertinent to the patient complaint. Exam Narrative: General: Well-developed, well nourished, in no
== END 2023-10-10 11:35 | disposition home or self-care (01) ==
PROVIDERS: Emergency Provider Nurse Practitioner Family; PCP Family Medicine
DX: J45.21 Mild intermittent asthma with (acute) exacerbation (principal); I48.91 Unspecified atrial fibrillation; J45.909 Unspecified asthma, uncomplicated; E11.9 Type 2 diabetes mellitus without complications; Z79.84 Long term (current) use of oral hypoglycemic drugs; E78.5 Hyperlipidemia, unspecified; I10 Essential (primary) hypertension; M19.90 Unspecified osteoarthritis, unspecified site; G25.81 Restless legs syndrome; Z96.652 Presence of left artificial knee joint; Z79.01 Long term (current) use of anticoagulants
CPT/HCPCS: 99213; G0463

== ENCOUNTER 2023-11-08 11:41 | Emergency (ER) | payer MEDICARE, MEDICAID, SELFPAY ==
--- NOTE | 2023-11-08 11:43 | ED.URI ---
HPI - URI/Sore Throat General Chief Complaint: Upper Respiratory Infection Stated Complaint: asthma flare up Time Seen by Provider: 11/08/23 11:43 Source: patient Mode of arrival: ambulatory Limitations: no limitations History of Present Illness HPI Narrative: Patient is a 68-year-old female who presents with 4 days of increased cough and congestion. Patient has asthma and has had multiple recent flares. Patient is still using her albuterol inhaler but has not used her nebulizer. Patient still does speak in complete sentences. Denies any fever, chills Related Data Home Medications Medication Instructions Recorded Confirmed apixaban 5 mg tablet (Eliquis) 5 mg PO BID 08/16/20 10/10/23 calcium carbonate 200 mg calcium 500 mg PO DAILY 08/16/20 10/10/23 (500 mg) chewable tablet (Antacid (calcium carbonate)) cetirizine 10 mg tablet 10 mg PO DAILY 08/16/20 10/10/23 digoxin 125 mcg (0.125 mg) tablet 125 mcg PO DAILY 08/16/20 10/10/23 fluticasone propionate 50 2 spray intranasal DAILY 08/16/20 10/10/23 mcg/actuation nasal spray,suspension ipratropium 20 mcg-albuterol 100 1 puff inhalation QID 08/16/20 10/10/23 mcg/actuation mist for inhalation (Combivent Respimat) levothyroxine 100 mcg tablet 100 mcg PO DAILY 08/16/20 10/10/23 lorazepam 1 mg tablet 1 mg PO Q8H PRN Anxiety 08/16/20 10/10/23 meloxicam 15 mg tablet 15 mg PO DAILY 08/16/20 10/10/23 metformin 500 mg tablet,extended 500 mg PO BID 08/16/20 10/10/23 release 24 hr metoprolol tartrate 25 mg tablet 25 mg PO BID 08/16/20 10/10/23 oxycodone-acetaminophen 5 mg-325 1 tablet PO Q6H PRN Pain 08/16/20 10/10/23 mg tablet pravastatin 10 mg tablet 10 mg PO DAILY 08/16/20 10/10/23 ropinirole 3 mg tablet 3 mg PO BID 08/16/20 10/10/23 sertraline 100 mg tablet 100 mg PO DAILY 08/16/20 10/10/23 tizanidine 4 mg tablet 2 mg PO Q6H PRN Muscle Spasm 08/16/20 10/10/23 budesonide-formoterol HFA 160 2 puff inhalation BID 02/05/21 10/10/23 mcg-4.5 mcg/actuation aerosol inhaler (Symbicort) furosemide 20 mg tablet 20 mg PO DAILY 10/02/22 10/10/23 losartan 25 mg tablet 25 mg PO DAILY 10/02/22 10/10/23 flecainide 50 mg tablet 50 mg PO DAILY 09/21/23 10/10/23 montelukast 10 mg tablet 10 mg PO HS 10/10/23 10/10/23 pravastatin 40 mg tablet 40 mg PO DAILY 10/10/23 10/10/23 trazodone 50 mg tablet 50 mg PO DAILY 10/10/23 10/10/23 Allergies Allergy/AdvReac Type Severity Reaction Status Date / Time quinine Allergy Unknown Palpitation Verified 11/08/23 11:55 s Review of Systems Review of Systems: All systems reviewed & are unremarkable except as noted in HPI and below Constitutional: Constitutional: Denies body ache(s), Denies chills, Denies fatigue, Denies fever(s), Denies headache(s), Denies malaise and Denies weakness Eyes: Eyes: Denies blurry vision, Denies itchy eyes and Denies loss of vision ENT: Denies otalgia, Denies headache(s), Reports nasal congestion, Denies sinus pain and Denies sore throat Cardiovascular: Cardiovascular: Denies chest pain, Denies irregular heart rhythm and Denies dyspnea Respiratory: Respiratory: Reports cough and Denies dyspnea Gastrointestinal: Gastrointestinal: Denies abdominal pain, Denies diarrhea, Denies nausea and Denies vomiting Musculoskeletal: Musculoskeletal: Denies back pain, Denies myalgias and Denies arthralgias Integumentary/Breasts: Skin/Breast: Denies pruritus and Denies rash Neurologic: Denies headache(s), Denies loss of vision and Denies weakness Psychiatric: Psychiatric: Reports no additional psychiatric complaints Endocrine: Endocrine: Denies fatigue Allergic/Immunologic: Allergic/Immunologic: Denies itchy eyes PMFSH Past Medical History Medical History A-fib Anxiety and depression Asthma Diabetes Hyperlipidemia Hypertension Migraines Osteoarthritis Restless leg syndrome Surgical History Surgical History (Reviewed 11/08/23 @ 12:00 by Katelynn Jara
[2023-11-08 11:52] VITALS: BP 159/71; PULSE 81; RESP 16; TEMP 36.8; O2SAT 97
== END 2023-11-08 12:12 | disposition home or self-care (01) ==
PROVIDERS: Emergency Provider Nurse Practitioner Family; PCP Family Medicine
DX: J45.41 Moderate persistent asthma with (acute) exacerbation (principal); E11.9 Type 2 diabetes mellitus without complications; I10 Essential (primary) hypertension; I48.91 Unspecified atrial fibrillation
CPT/HCPCS: 99213; G0463